=== PATIENT | male | born 1950 | race Two or more races ===

== ENCOUNTER 2018-12-03 13:44 | Inpatient (IN) | payer MEDICARE, OTHER ==
[~2018-12-03] VITALS: Ht 182.9 cm; Wt 100.7 kg
--- NOTE | 2018-12-03 14:15 | NUR ---
PT BIB SELF sent from [facility] for evaluation of agreesive behavior, PT IS AAOX0, NOT IN RESPIRATORY DISTRESS, V/S STABLE, KEPT RESTED AND COMFORTABLE.
[2018-12-03] MEDS ORDERED: AMLO5TAB9 PEG (14:56)
[2018-12-03] MEDS ORDERED: ASPI-1169 PEG (14:56)
[2018-12-03] MEDS ORDERED: NUT.237L30 PEG ×2 (14:56)
[2018-12-03] MEDS ORDERED: BISA10SU8 RC (14:56)
[2018-12-03] MEDS ORDERED: METF-440 PEG (14:56)
[2018-12-03] MEDS ORDERED: BLOO-668 IN (14:56)
[2018-12-03] MEDS ORDERED: ATOR40TA PEG (14:56)
[2018-12-03] MEDS ORDERED: SENN-168 PEG (14:56)
[2018-12-03] MEDS ORDERED: MAGN400O6 PEG (14:56)
[2018-12-03] MEDS ORDERED: INSU100V7 SQ (14:56)
[2018-12-03] MEDS ORDERED: ACET-868 PEG (14:56)
[2018-12-03 15:27] LABS: BASOPHILS % (AUTO) 0.8 % (0.0-2.0); EOSINOPHILS % (AUTO) 6.5 % (0.0-6.0); HEMATOCRIT 45 % (39-51); HEMOGLOBIN 14.7 g/dL (13.5-17.5); LYMPHOCYTES % (AUTO) 17.3 % (20.0-44.0); MEAN CORPUSCULAR HGB CONC 33 g/dl (31.0-36.0); MEAN CORPUSCULAR VOLUME 88 fL (80-96); MONOCYTES # (AUTO) 0.4 /CMM (0.1-1.30); MONOCYTES % (AUTO) 7.9 % (2.0-12.0); NEUTROPHILS # (AUTO) 3.8 /CMM (1.8-8.9); NEUTROPHILS % (AUTO) 67.5 % (43.0-81.0); PLATELET COUNT (AUTO) 192 /CMM (150-450); RED BLOOD CELL COUNT(AUTO) 5.07 MIL/uL (4.5-6.0); WHITE BLOOD COUNT (AUTO) 5.7 K/uL (4.3-11.0)
--- NOTE | 2018-12-03 15:28 | NUR ---
LABS DRAWNED AND SENT TO LAB. AWAITING RESULT.
[2018-12-03 15:44] LABS: CALCIUM, SERUM 9.5 mg/dL (8.5-10.1); CARBON DIOXIDE 33 mmol/L (21-32); CHLORIDE 101 mmol/L (98-107); GLUCOSE 151 mg/dL (74-106); POTASSIUM 4.1 mmol/L (3.5-5.1); SODIUM SERUM 139 mmol/L (136-145); UREA NITROGEN, BLOOD 16 mg/dL (7-18)
[2018-12-03 15:50] LABS: ALANINE AMINOTRANSFERASE 27 U/L (12-78); ALCOHOL, BLOOD < 3 mg/dL (0-0); ALKALINE PHOSPHATASE 94 U/L (46-116); ASPARTATE AMINOTRANSFERASE 20 U/L (15-37); BILIRUBIN,DIRECT 0.3 mg/dL (0.0-0.2); TOTAL PROTEIN, SERUM 8.2 g/dL (6.4-8.2)
--- NOTE | 2018-12-03 16:00 | NUR ---
PT GIVEN URINAL BUT UNABLE TO GIVE URINE SPECIMEN.
--- NOTE | 2018-12-03 16:50 | NUR ---
IV LINE INSERTED AT L HAND G18.
[2018-12-03 16:53] LABS: ACETAMINOPHEN 0 ug/ml (10-30); SALICYLATE < 0.2 mg/dL (2.8-20.0)
--- NOTE | 2018-12-03 19:29 | NUR ---
REPORT GIVEN TO JARET LONG FOR PADMA.
[2018-12-03] MEDS ORDERED: IV NS 0.9% 1,000 ML BAG IV ONE (19:30)
[2018-12-03] MEDS ORDERED: IV NS 0.9% 1,000 ML IV PRN (20:09)
[2018-12-03] MEDS ORDERED: GLUCERNA 1.2 1,000 ML BOTTLE PEG SCH ×4 (20:30→21:15)
[2018-12-03] MEDS ORDERED: ONDANSETRON HCL/PF 4 MG/2 ML VIAL IVP PRN ×2 (20:30→21:15)
[2018-12-03] MEDS ORDERED: BISACODYL SUPP (10 MG) 10 MG/SUPP.RECT SUPP.RECT RC PRN ×2 (20:30→21:15)
[2018-12-03] MEDS ORDERED: ZOLPIDEM TARTRATE 5 MG TABLET PO PRN ×2 (20:30→21:15)
[2018-12-03] MEDS ORDERED: ACETAMINOPHEN 325 MG TABLET PO PRN ×2 (20:30→21:15)
[2018-12-03] MEDS ORDERED: Z GUARD REMEDY 2 OZ OINT TP PRN ×2 (20:30→21:15)
[2018-12-03] MEDS ORDERED: MAG HYDROX/AL HYDROX/SIMETH 30 ML UDC PO PRN ×2 (20:30→21:15)
[2018-12-03] MEDS ORDERED: HYDROCODONE/APAP 5/325MG 1 EACH TABLET PO PRN ×2 (20:30→21:15)
[2018-12-03] MEDS ORDERED: MAGNESIUM HYDROXIDE 30 ML UDC PO PRN ×2 (20:30→21:15)
--- NOTE | 2018-12-03 20:51 | NUR ---
ADMIT TO [facility] BED 111-[address] GARRISON DE LEON LACTIC ACIDOSIS, AMS
--- NOTE | 2018-12-03 21:00 | NUR ---
REPORT GIVEN TO AURORA RAYGOZA FOR PADMA.
[2018-12-03 22:00] VITALS: BP 133/74
[2018-12-03] MEDS ORDERED: INSULIN GLARGINE, 100 UNIT/ML CARTRIDGE SQ SCH (22:00)
[2018-12-03] MEDS ORDERED: ATORVASTATIN 40 MG TABLET PEG SCH (22:00)
[2018-12-03] MEDS: INSULIN GLARGINE, 100 UNIT/ML CARTRIDGE SQ SCH (22:00)
--- NOTE | 2018-12-03 22:00 | NUR ---
DYNAMOMETER TUNERMANNEQUIN COLORING ARTIST NOTE: PT ADMITTED FROM ER VIA WHEELCHAIR. PT IS ALERT BUT APHASIC. SITTER AT BEDSIDE. NO APPARENT DISTRESS NOTED. NO COMPLAINTS OF PAIN OR DISCOMFORT AT THIS TIME. ON ROOM AIR, SATURATING WELL. NO SOB NOTED. ON TELE MONITOR SINUS RHYTHM HR 69BPM. PT IS COOPERATIVE AT THIS TIME. ABLE TO AMBULATE WITH ASSISTANCE. IV ON LEFT HAND #18 INTACT AND PATENT, FLUSHING WELL. PERTINENT ASSESSMENT DONE. REDNESS ON GT SITE, SCAB ON LEFT LATERAL CHEST AND REDNESS/MULTIPLE DISCOLORATIONS NOTED AT THE BACK, PICTURES TAKEN AND PLACED ON CHART. KEPT CLEAN, DRY AND COMFORTABLE. SAFETY AND FALL PRECAUTIONS OBSERVED AND MAINTAINED. WILL CONTINUE TO MONITOR PT.
[2018-12-03] MEDS: IV NS 0.9% 1,000 ML IV PRN (22:28)
--- NOTE | 2018-12-03 22:30 | NUR ---
QA INTERNSHIP NOTE: ACCUCHECK DONE, 78MG/DL. INSULIN LANTUS DUE AT 2200 HELD, DR. JI AWARE.
[2018-12-03] MEDS: ATORVASTATIN 40 MG TABLET PEG SCH (22:53)
[2018-12-04] VITALS: BP 130/80
[2018-12-04 04:00] VITALS: BP 120/74
[2018-12-04] MEDS ORDERED: DEXTROSE 50%-WATER 50 ML DISP.SYRIN IV PRN (04:30)
[2018-12-04] MEDS ORDERED: INSULIN REGULAR, HUMAN 100 UNIT/ML 3 ML VIAL SQ PRN (04:30)
[2018-12-04] MEDS: BLOOD SUGAR DIAGNOSTIC 1 EACH STRIP IN SCH ×4 (05:40→23:07)
--- NOTE | 2018-12-04 06:42 | NUR ---
NUCLEAR EQUIPMENT RESEARCH ENGINEER NOTE: NO CHANGES NOTED THROUGHOUT THE SHIFT. SITTER AT BEDSIDE. NO APPARENT DISTRESS NOTED. DENIES PAIN AND DISCOMFORT AT THIS TIME. NO SOB NOTED. ON TELE MONITOR SINUS RHYTHM HR 63BPM. IV ON LEFT HAND #18 INTACT AND PATENT, IVF INFUSING WELL. GT INTACT, NO RESIDUAL NOTED AT THIS TIME, ABLE TO TOLERATE FEEDING WELL. KEPT CLEAN, DRY AND COMFORTABLE. SAFETY AND FALL PRECAUTIONS OBSERVED AND MAINTAINED. WILL ENDORSE TO DAY SHIFT RN FOR CONTINUITY OF CARE.
[2018-12-04 08:00] VITALS: BP 139/76
--- NOTE | 2018-12-04 08:00 | NUR ---
AUTO BODY SERVICE MECHANIC NOTES PATIENT IN BED RESTING ALERT, ORIENTED X2 DENIES ANY PAIN OR DISCOMFORT. SITTER AT BEDSIDE. PERIPHERAL IV INTACT PATENT RUNNING PRESCRIBED FLUIDS. BED IN LOW LOCKED POSITION. CALL LIGHT WITHIN REACH. SITTER AT BEDSIDE. WILL CONTINUE TO MONITOR.
[2018-12-04] MEDS: METFORMIN 500 MG TABLET PEG SCH ×2 (08:09→17:11)
[2018-12-04] MEDS: IV NS 0.9% 1,000 ML IV PRN ×2 (08:09→17:12)
[2018-12-04] MEDS: AMLODIPINE BESYLATE 5 MG TABLET PO SCH (08:10)
[2018-12-04] MEDS: ASPIRIN 81 MG TAB.CHEW PEG SCH (08:10)
[2018-12-04] MEDS: SENNOSIDES 8.6 MG TABLET PO SCH (08:10)
[2018-12-04] MEDS ORDERED: SENNOSIDES 8.6 MG TABLET PO SCH (09:00)
[2018-12-04] MEDS ORDERED: ASPIRIN 81 MG TAB.CHEW PEG SCH (09:00)
[2018-12-04] MEDS ORDERED: METFORMIN 500 MG TABLET PEG SCH (09:00)
[2018-12-04] MEDS ORDERED: AMLODIPINE BESYLATE 5 MG TABLET PO SCH (09:00)
[2018-12-04 12:00] VITALS: BP 117/69
[2018-12-04 16:00] VITALS: BP 120/72
--- NOTE | 2018-12-04 16:16 | NUR ---
Patient resides at [phone]. He requires mod-max assist with adl's. Andree Wise - ex [phone] and daughter Shikha Valdez [phone] are his primary source of support and next of kin. Current [facility] plan [facility] [place] [email or web address]. He is also on 7[facility] bed[facility] at [facility]. Addendum: 12/04/18 at 1616 by JUANITO COMBS RN Amended: Links added.
[2018-12-04] MEDS: GLUCERNA 1.2 1,000 ML BOTTLE NG PRN ×2 (16:29→17:12)
--- NOTE | 2018-12-04 18:44 | NUR ---
MS RN NOTES PATIENT IN BED RESTING NO SOB OR ACUTE DISTRESS NOTED. ALL DUE MEDICATIONS ADMINISTERED. ALL NEEDS MET. WILL ENDORSE TO PM SHIFT PADMA.
--- NOTE | 2018-12-04 19:30 | NUR ---
MS RN NOTE: RECEIVED PT ON BED ASLEEP, BUT AROUSES EASILY TO VERBAL OR TACTILE STIMULI. SITTER AT BEDSIDE. NO APPARENT DISTRESS NOTED. DENIES PAIN AND DISCOMFORT AT THIS TIME. NO SOB NOTED. SATURATING WELL ON ROOM AIR. IV ON LEFT HAND #18 INTACT AND PATENT, IVF INFUSING WELL. GT INTACT, NO RESIDUAL NOTED AT THIS TIME. KEPT CLEAN, DRY AND COMFORTABLE. SAFETY AND FALL PRECAUTIONS OBSERVED AND MAINTAINED. WILL CONTINUE TO MONITOR PT.
[2018-12-04 20:00] VITALS: BP 134/72
[2018-12-04] MEDS: ATORVASTATIN 40 MG TABLET PEG SCH (22:47)
[2018-12-04] MEDS: INSULIN GLARGINE, 100 UNIT/ML CARTRIDGE SQ SCH (22:55)
[2018-12-05 03:32] LABS: APPEARANCE,URINE CLEAR (CLEAR); BILIRUBIN,URINE NEGATIVE (NEGATIVE); BLOOD, URINE NEGATIVE Ery/uL (NEGATIVE); COLOR,URINE YELLOW (YELLOW); KETONES,URINE NEGATIVE (NEGATIVE); LEUKOCYTE ESTERASE ,URINE NEGATIVE (NEGATIVE); NITRITE, URINE NEGATIVE (NEGATIVE); PROTEIN,URINE NEGATIVE (NEGATIVE); UGLUCOSE NEGATIVE (NEGATIVE)
[2018-12-05 03:48] LABS: BACTERIA,URINE None seen /HPF (None Seen); SQUAMOUS EPITHELIAL CELL,UR Few /HPF (None Seen); WBC,URINE 0-2 /HPF (0-3)
[2018-12-05 04:00] VITALS: BP 124/68
[2018-12-05] MEDS: BLOOD SUGAR DIAGNOSTIC 1 EACH STRIP IN SCH ×3 (06:08→17:27)
--- NOTE | 2018-12-05 06:55 | NUR ---
MS RN NOTE: NO CHANGES NOTED THROUGHOUT THE SHIFT. SITTER AT BEDSIDE. NO APPARENT DISTRESS NOTED. DENIES PAIN AND DISCOMFORT AT THIS TIME. NO SOB NOTED. IV ON LEFT HAND #18 INTACT AND PATENT, IVF INFUSING WELL. GT INTACT, NO RESIDUAL NOTED AT THIS TIME, ABLE TO TOLERATE FEEDING WELL. KEPT CLEAN, DRY AND COMFORTABLE. SAFETY AND FALL PRECAUTIONS OBSERVED AND MAINTAINED. WILL ENDORSE TO DAY SHIFT RN FOR CONTINUITY OF CARE.
[2018-12-05] MEDS: IV NS 0.9% 1,000 ML IV PRN (07:12)
[2018-12-05 08:00] VITALS: BP 120/72
[2018-12-05] MEDS: SENNOSIDES 8.6 MG TABLET PO SCH (08:58)
[2018-12-05] MEDS: AMLODIPINE BESYLATE 5 MG TABLET PO SCH (09:00)
[2018-12-05] MEDS: ASPIRIN 81 MG TAB.CHEW PEG SCH (09:00)
[2018-12-05] MEDS: METFORMIN 500 MG TABLET PEG SCH ×2 (09:01→17:26)
[2018-12-05 11:02] LABS: BASOPHILS % (AUTO) 0.5 % (0.0-2.0); EOSINOPHILS % (AUTO) 7.5 % (0.0-6.0); HEMATOCRIT 38 % (39-51); HEMOGLOBIN 12.7 g/dL (13.5-17.5); LYMPHOCYTES # (AUTO) 1.2 /CMM (0.8-4.8); LYMPHOCYTES % (AUTO) 21.3 % (20.0-44.0); MEAN CORPUSCULAR HGB CONC 33 g/dl (31.0-36.0); MEAN CORPUSCULAR VOLUME 86 fL (80-96); MONOCYTES # (AUTO) 0.6 /CMM (0.1-1.30); MONOCYTES % (AUTO) 11.2 % (2.0-12.0); NEUTROPHILS # (AUTO) 3.3 /CMM (1.8-8.9); NEUTROPHILS % (AUTO) 59.5 % (43.0-81.0); PLATELET COUNT (AUTO) 160 /CMM (150-450); RED BLOOD CELL COUNT(AUTO) 4.41 MIL/uL (4.5-6.0); WHITE BLOOD COUNT (AUTO) 5.6 K/uL (4.3-11.0)
[2018-12-05 11:17] LABS: CREATININE 0.8 mg/dL (0.6-1.3); MAGNESIUM 1.5 mg/dL (1.8-2.4); PHOSPHORUS 2.8 mg/dL (2.5-4.9); POTASSIUM 3.9 mmol/L (3.5-5.1)
[2018-12-05 12:00] VITALS: BP 119/73
[2018-12-05] MEDS: GLUCERNA 1.2 1,000 ML BOTTLE NG PRN (14:04)
[2018-12-05 16:00] VITALS: BP 129/74
[2018-12-05] MEDS: PANTOPRAZOLE 40 MG VIAL IV SCH (19:09)
[2018-12-05 20:00] VITALS: BP 135/76
[2018-12-05] MEDS: DIVALPROEX SODIUM 125 MG CAP.SPRINK PO SCH (20:49)
[2018-12-05] MEDS: ATORVASTATIN 40 MG TABLET PEG SCH (20:50)
[2018-12-05] MEDS: INSULIN GLARGINE, 100 UNIT/ML CARTRIDGE SQ SCH ×2 (21:16→21:24)
[2018-12-05] MEDS ORDERED: INSULIN GLARGINE, 100 UNIT/ML CARTRIDGE SQ ONE (21:21)
[2018-12-06] MEDS: BLOOD SUGAR DIAGNOSTIC 1 EACH STRIP IN SCH ×4 (00:27→17:09)
[2018-12-06 04:00] VITALS: BP 123/71
[2018-12-06] MEDS: IV NS 0.9% 1,000 ML IV PRN (04:18)
--- NOTE | 2018-12-06 06:00 | NUR ---
PT AWAKE , ALERT, APHASIC WITH INCOMPREHENSIBLE REACTION/ OR WORDS ESPECIALLY IF HE GETS UPSET OR WANTS SOMETHING. PT JUST SITS AT THE EDGE OF BED.INCONTINENT OF URINE AND STOOL, HAD LARGE BM LAST NIGHT. IV LINE REINSERTED , COVERED WITH ARM SLEEVE, CONITNUEWITH IV FLUIDS AT 75CC/HR AND GT FEEDING @ 75 CC/ HR. INFUSING WELL, TOLERATING FEEDS WITH RESIDUAL , ACCUCHECKS WITHIN RANGE.VSS,AFEBRILE WILL CONTINUE TO MONITOR. KEPT CLEAN AND DRY.
[2018-12-06] MEDS: SENNOSIDES 8.6 MG TABLET PO SCH (08:46)
[2018-12-06] MEDS: ASPIRIN 81 MG TAB.CHEW PEG SCH (08:46)
[2018-12-06] MEDS: DIVALPROEX SODIUM 125 MG CAP.SPRINK PO SCH ×3 (08:47→21:53)
[2018-12-06] MEDS: AMLODIPINE BESYLATE 5 MG TABLET PO SCH (08:47)
[2018-12-06] MEDS: METFORMIN 500 MG TABLET PEG SCH ×2 (08:47→17:09)
[2018-12-06 12:00] VITALS: BP 128/90
--- NOTE | 2018-12-06 15:23 | NUR ---
PATIENT UNABLE TO BE DISCHARED TO [facility] TODAY PER ORDER DUE TO THE NEED TO [facility] TO SEE THE PATIENT AND DECIDE IF PATIENT CAN BE ACCEPTED WITH G TUBE FEEDING. INFORMED REGGIE ABOUT THE SITUATION. PATIENT POSSIBLE DISCHARGE FOR TOMORROW. PATIENT IS STABLE WILL CONTINUE TO TREAT AND MONITOR.
[2018-12-06] MEDS: PANTOPRAZOLE 40 MG VIAL IV SCH (17:09)
[2018-12-06] MEDS: ATORVASTATIN 40 MG TABLET PEG SCH (21:53)
[2018-12-06] MEDS: INSULIN GLARGINE, 100 UNIT/ML CARTRIDGE SQ SCH (21:57)
[2018-12-06 22:21] LABS: BASOPHILS % (AUTO) 0.8 % (0.0-2.0); EOSINOPHILS % (AUTO) 8.3 % (0.0-6.0); HEMATOCRIT 41 % (39-51); HEMOGLOBIN 13.3 g/dL (13.5-17.5); LYMPHOCYTES # (AUTO) 1.3 /CMM (0.8-4.8); MEAN CORPUSCULAR HGB CONC 33 g/dl (31.0-36.0); MEAN CORPUSCULAR VOLUME 87 fL (80-96); MONOCYTES # (AUTO) 0.5 /CMM (0.1-1.30); MONOCYTES % (AUTO) 9.9 % (2.0-12.0); PLATELET COUNT (AUTO) 162 /CMM (150-450); RED BLOOD CELL COUNT(AUTO) 4.68 MIL/uL (4.5-6.0); WHITE BLOOD COUNT (AUTO) 5.3 K/uL (4.3-11.0)
[2018-12-06 22:30] LABS: CALCIUM, SERUM 8.6 mg/dL (8.5-10.1); CREATININE 0.8 mg/dL (0.6-1.3); MAGNESIUM 1.5 mg/dL (1.8-2.4); PHOSPHORUS 3.6 mg/dL (2.5-4.9); POTASSIUM 3.8 mmol/L (3.5-5.1)
[2018-12-06 23:00] VITALS: BP 121/73
--- NOTE | 2018-12-07 05:10 | NUR ---
PT ALERT, AGREED TO HAVE BLOOD DRAWN ONLY TO LEFT HAND ,HE SCREAM WHEN HIS RIGHT ARM WAS ATTEMPTED. REFUSED THIS MORNING VITALS AND JUST SCREAM TO PROCUREMENT FORESTER, VERBALLY AGGRESSIVE BUT WITH EXPLANATION PT WILL SOON COMPLY. IN BED MOST OF THE NIGHT, SLEEPS WELL. WILL CONTINUE TO MONITOR, IV AND GT INTACT.
[2018-12-07] MEDS: BLOOD SUGAR DIAGNOSTIC 1 EACH STRIP IN SCH ×5 (06:21→23:25)
[2018-12-07 06:22] VITALS: BP 127/92
[2018-12-07 08:00] VITALS: BP 135/75
[2018-12-07] MEDS: METFORMIN 500 MG TABLET PEG SCH ×2 (09:10→18:51)
[2018-12-07] MEDS: DIVALPROEX SODIUM 125 MG CAP.SPRINK PO SCH ×3 (09:11→21:03)
[2018-12-07] MEDS: ASPIRIN 81 MG TAB.CHEW PEG SCH (09:11)
[2018-12-07] MEDS: SENNOSIDES 8.6 MG TABLET PO SCH (09:11)
[2018-12-07] MEDS: AMLODIPINE BESYLATE 5 MG TABLET PO SCH (09:11)
[2018-12-07 12:00] VITALS: BP 135/80
--- NOTE | 2018-12-07 12:01 | NUR ---
WOUND CARE CONSULT: PT REFUSED SKIN ASSESSMENT. HYPERGRANULAR TISSUE NOTED TO G TUBE SITE. DEFER TO MD. WILL SEE PRN. SKIN PROTECTION MEASURES IN PLACE AND DISCUSSED WITH NURSING STAFF. WILL SEE PRN. CURRENT ELIAS SCORE IS 16. Addendum: 12/07/18 at 1202 by RIAZ EGAN WNDNU Amended: Links added.
--- NOTE | 2018-12-07 13:15 | NUR ---
RN NOTE BLOOD SUGAR ACCUCHECK 1300 124 NO COVERAGE NEEDED
[2018-12-07] MEDS: IV NS 0.9% 1,000 ML IV PRN (14:12)
[2018-12-07 16:00] VITALS: BP 135/80
[2018-12-07] MEDS: PANTOPRAZOLE 40 MG VIAL IV SCH (18:51)
[2018-12-07 20:56] VITALS: BP 128/72
--- NOTE | 2018-12-07 20:56 | NUR ---
YANG RN NOTE PATIENT RESTING IN BED IN STABLE CONDITION, NO CHANGES NOTED THROUGHOUT THE DAY. ENDORSED TO DREDGE PIPEMAN NURSE FOR CONTINUITY OF CARE.
--- NOTE | 2018-12-07 21:00 | NUR ---
PT ALERT, AWAKE, DENIES ANY PAIN ,APHASIC NUT NODS FOR YES AND SAYS NO IF REFUSE. PT IV INTACT AND GT INTACT CONTINUE WITH IV FLUIDS AND FEEDING TOLERATED WELL WITH NO RESIDUAL. INCONTINENT OF URINE USES DIAPER. SITS AT EDGE OF BED WITHOUT PROBLEM.VSS,AFEBRILE. WILL CONTINUE TO MONITOR. SITTER FOR SAFETY.
[2018-12-07] MEDS: ATORVASTATIN 40 MG TABLET PEG SCH (21:03)
[2018-12-07] MEDS: INSULIN GLARGINE, 100 UNIT/ML CARTRIDGE SQ SCH (21:09)
--- NOTE | 2018-12-07 23:00 | NUR ---
MS/RN NOTES RECEIVED REPORT FROM JARET YANES FOR PADMA
[2018-12-08] MEDS: GLUCERNA 1.2 1,000 ML BOTTLE NG PRN (00:07)
[2018-12-08] MEDS: IV NS 0.9% 1,000 ML IV PRN (02:47)
[2018-12-08 04:00] VITALS: BP 134/79
[2018-12-08] MEDS: BLOOD SUGAR DIAGNOSTIC 1 EACH STRIP IN SCH ×2 (06:04→12:51)
--- NOTE | 2018-12-08 06:58 | NUR ---
RN NOTES PT IN STABLE CONDITION. NO ACUTE CHANGES THROUGHOUT SHIFT. SAFETY MEASURES OBSERVED AT ALL TIMES. ALL NEEDS ANTICIPATED. ENDORSED TO AM SHIFT RN FOR PADMA
[2018-12-08 08:00] VITALS: BP 143/82
[2018-12-08] MEDS: METFORMIN 500 MG TABLET PEG SCH ×2 (09:28→16:05)
[2018-12-08] MEDS: DIVALPROEX SODIUM 125 MG CAP.SPRINK PO SCH ×2 (09:29→12:51)
[2018-12-08] MEDS: AMLODIPINE BESYLATE 5 MG TABLET PO SCH (09:30)
[2018-12-08] MEDS: ASPIRIN 81 MG TAB.CHEW PEG SCH (09:30)
[2018-12-08] MEDS: SENNOSIDES 8.6 MG TABLET PO SCH (09:30)
[2018-12-08 16:00] VITALS: BP 139/77
[2018-12-08] MEDS: PANTOPRAZOLE 40 MG VIAL IV SCH (16:05)
--- NOTE | 2018-12-08 17:45 | NUR ---
YANG RN NOTE PATIENT PREPARED FOR DISCHARGE. EXITCARE AND DISCHARGE INSTRUCTIONS COMPLETED AND PRINTED AND SIGNED BY 2 NURSES SINCE PATIENT UNABLE TO SIGN. VITAL SIGNS STABLE, NO RESPIRATORY DISTRESS OR COMPLAINT OF PAIN. G TUBE INTACT. IV SITE REMOVED ON LEFT ARM. PICTURES TAKEN OF SKIN ISSUES AND PLACED IN CHART. REPORT CALLED TO URMILA NICHOLE AT [facility], STATED THEY ARE READY FOR PATIENT TO ARRIVE. REPORT GIVEN AT BEDSIDE TO 2 EMT'S. BELONGINGS LIST COMPLETE AND SIGNED. PATIENT LEFT WITH BELONGINGS AND ALL PAPERWORK AT 17:30 IN STABLE CONDITION ACCOMPANIED BY 2 EMT'S.
== END 2018-12-08 17:31 | DRG 640 ==
LOC: ER 13:46 → TELE1 21:34 → MEDSG1 12-04 10:33
PROVIDERS: ATTEND Nurse Practitioner Acute Care
DX: E86.0 Dehydration (principal); G93.41 Metabolic encephalopathy; F05 Delirium due to known physiological condition; E87.2 Acidosis; E11.9 Type 2 diabetes mellitus without complications; E78.5 Hyperlipidemia, unspecified; F32.9 Major depressive disorder, single episode, unspecified; I10 Essential (primary) hypertension; I69.320 Aphasia following cerebral infarction; R13.10 Dysphagia, unspecified; Z93.1 Gastrostomy status; F03.90 Unspecified dementia, unspecified severity, without behavioral disturbance, psychotic disturbance, mood disturbance, and anxiety; Z79.84 Long term (current) use of oral hypoglycemic drugs; F01.50 Vascular dementia, unspecified severity, without behavioral disturbance, psychotic disturbance, mood disturbance, and anxiety; D64.9 Anemia, unspecified
CPT/HCPCS: 36415; 70450-TC; 71045-TC; 80048-TC; 80076-TC; 80305; 81000-TC; 82962-TC; 83605-TC; 83735-TC; 84100-TC; 84443-TC; 84484-TC; 85025-TC; 85730-TC; 87040-TC; 87081-TC; 87086-TC; A4349; C9113; G0378; G0480; J1815; J7030